=== PATIENT | female | born 1950 | race Caucasian/White ===

== ENCOUNTER → 2016-07-30 | Outpatient (CLI) | payer MEDICARE ==
[~2016-07-30] MED LIST: CHOL400C PO; CYCL10TA2 PO; LEVO112T4 PO; MULT-460 PO; NAPR220T70 PO; OMEG-128 PO; TRAM-29 PO; VITA1TAB19 PO; [UNRECOGNIZED DRUG - CODE] PO; [UNRECOGNIZED DRUG - OTHER] PO
[2016-07-30 09:45] LABS: FREE T4 1.34 ng/dL (0.76-1.46)
== END | disposition home or self-care (01) ==
LOC: LAB 08:52
PROVIDERS: ATTEND Orthopaedic Surgery
DX: E03.9 Hypothyroidism, unspecified (principal)
CPT/HCPCS: 36415; 84439; 84443

== ENCOUNTER → 2016-07-30 | Outpatient (CLI) | payer MEDICARE ==
[2016-07-30 09:09] LABS: BASO # 0.1 x10^3/uL (0.0-0.2); BASO % 1 % (0-3); EOS % 2 % (0-3); HEMATOCRIT 47.2 % (36.0-47.0); HEMOGLOBIN 15.9 g/dL (12.0-15.5); LYMPH # 3.3 x10^3/uL (1.0-4.8); LYMPH % 40 % (24-48); MEAN CORPUSCULAR HEMOGLOBIN 31 pg (25-35); MEAN CORPUSCULAR HGB CONC 34 g/dL (31-37); MEAN CORPUSCULAR VOLUME 92 fL (79-100); MONO % 8 % (0-9); NEUT % 49 % (31-73); PLATELET COUNT 395 x10^3/uL (140-400); RED BLOOD COUNT 5.13 x10^6/uL (3.50-5.40); RED CELL DISTRIBUTION WIDTH 13.7 % (11.5-14.5); WHITE BLOOD COUNT 8.3 x10^3/uL (4.0-11.0)
[2016-07-30 09:21] LABS: ALBUMIN 3.9 g/dL (3.4-5.0); CALCIUM 10.3 mg/dL (8.5-10.1); GFR 55.5; POTASSIUM 4.6 mmol/L (3.5-5.1)
[2016-07-30 09:29] LABS: INR 1.1 (0.8-1.1); PROTHROMBIN TIME PATIENT 13.3 SEC (11.7-14.0)
[2016-07-30 11:06] LABS: BILIRUBIN,URINE SMALL (NEG); GLUCOSE,URINE NEGATIVE (NEG); NITRITE,URINE NEGATIVE (NEG); PH,URINE 6.5; PROTEIN,URINE 100 mg/dL (NEG-TRACE)
[2016-07-30 11:31] LABS: BACTERIA,URINE 0 /HPF (0-FEW); SQUAMOUS EPITHELIAL CELL,UR OCC /LPF; WBC,URINE OCC /HPF (0-4)
--- NOTE | 2016-07-30 12:20 | EKG ---
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
--- NOTE | 2016-07-30 13:49 | RAD ---
Indication preop. Anticipated total hip replacement. PA and lateral views of the chest were obtained. No prior imaging of the chest is available. The heart and pulmonary vessels appear normal. The lungs are clear of acute infiltrates. There are several small nodules likely reflecting granulomas. There is a slightly larger nodule in the right lower lung field. Comparison with old films or follow-up is suggested to confirm stability. Right shoulder prosthesis is noted. Degenerative changes about the left shoulder are additionally noted. IMPRESSION: No acute finding apparent in the chest. Probable granulomas. See above discussion
== END | disposition home or self-care (01) ==
LOC: SURGPAT 12:54
PROVIDERS: ATTEND Orthopaedic Surgery
DX: Z01.818 Encounter for other preprocedural examination (principal)
CPT/HCPCS: 36415; 71020; 80048; 81001; 82040; 85027; 85610; 85651; 85730; 87641; 93005

== ENCOUNTER 2016-08-14 05:56 | Inpatient (IN) | payer MEDICARE ==
[2016-08-14] VITALS (8 sets, daily range): BP systolic 122–154; BP diastolic 70–97
[~2016-08-14] VITALS: Ht 177.8 cm; Wt 83.9 kg
[2016-08-14] MEDS ORDERED: MORPHINE SULFATE 5 MG, KETOROLAC TROMETHAMINE 30 MG, ROPIVacaine 0.5% PF 60 ML, EPINEPH... INT ART ONE ×10 (06:00)
[2016-08-14] MEDS ORDERED: TRANEXAMIC ACID 1,000 MG in IV NORMAL SALINE 50ML 50 ML INJ ONE ×2 (06:00→08:00)
[2016-08-14] MEDS ORDERED: ACETAMINOPHEN 500 MG TABLET PO ONE ×2 (06:42→07:00)
[2016-08-14] MEDS ORDERED: CELECOXIB 200 MG CAPSULE. ONE (06:42)
[2016-08-14] MEDS ORDERED: LIDOCAINE 1% 1 ML SYRINGE. ID PRN (07:00)
[2016-08-14] MEDS ORDERED: CELECOXIB 200 MG CAPSULE. PO ONE (07:00)
[2016-08-14] MEDS ORDERED: ONDANSETRON PF 4 MG/2 ML VIAL. IV PRN (07:00)
[2016-08-14] MEDS ORDERED: fentaNYL PF VIAL 100 MCG/2 ML VIAL IV PRN ×3 (07:00→08:00)
[2016-08-14] MEDS ORDERED: IV RINGERS,LACTATED 1000ML 1,000 ML IV SCH (07:00)
[2016-08-14] MEDS ORDERED: PROCHLORPERAZINE 10 MG/2 ML VIAL. IV PRN ×2 (07:00→08:00)
[2016-08-14 07:12] LABS: PROTHROMBIN TIME PATIENT 12.4 SEC (11.7-14.0)
[2016-08-14] MEDS ORDERED: PROPOFOL 20 ML IV ONE (07:21)
[2016-08-14] MEDS ORDERED: fentaNYL PF VIAL 100 MCG/2 ML VIAL ONE (07:21)
[2016-08-14] MEDS ORDERED: MIDAZOLAM HCL/PF 2 MG/2 ML VIAL. ONE (07:21)
[2016-08-14] MEDS ORDERED: LIDOCAINE 2% PF Vial for OR 5 ML VIAL. ONE (07:21)
[2016-08-14] MEDS ORDERED: OXYTOCIN 10 UNIT/ML VIAL. ONE (07:21)
[2016-08-14] MEDS ORDERED: ROCURONIUM 50 MG/5 ML VIAL. ONE ×2 (07:21→09:36)
[2016-08-14] MEDS ORDERED: DEXAMETHASONE SOD PHOS 20 MG/5 ML VIAL. ONE (07:21)
[2016-08-14] MEDS: IV DEXTROSE 5 %-0.45 % NACL 1,000 ML IV SCH ×2 (07:59→21:21)
[2016-08-14] MEDS ORDERED: 0.9 % SODIUM CHLORIDE 10 ML DISP.SYRIN. IV PRN (08:00)
[2016-08-14] MEDS ORDERED: oxyCODONE/APAP 5/325 1 TAB TABLET PO PRN (08:00)
[2016-08-14] MEDS ORDERED: ACETAMINOPHEN 325 MG TABLET. PO PRN (08:00)
[2016-08-14] MEDS ORDERED: CALCIUM CARBONATE 500 MG TAB.CHEW PO PRN (08:00)
[2016-08-14] MEDS ORDERED: ZOLPIDEM 5 MG TABLET. PO PRN (08:00)
[2016-08-14] MEDS ORDERED: DEXTROSE 50% 25 GM / 50ML DISP.SYRIN. IV PRN (08:00)
[2016-08-14] MEDS ORDERED: oxyCODONE/APAP 7.5/325 1 TAB TABLET PO PRN (08:00)
[2016-08-14] MEDS ORDERED: diphenhydrAMINE 50 MG/ML VIAL IV PRN (08:00)
[2016-08-14] MEDS ORDERED: MORPHINE SULFATE 10 MG/ML VIAL. IV PRN (08:00)
[2016-08-14] MEDS ORDERED: MORPHINE SULFATE 4 MG/ML DISP.SYRIN. IV PRN ×2 (08:00)
[2016-08-14] MEDS ORDERED: MORPHINE SULFATE 2 MG/ML DISP.SYRIN. IV PRN (08:00)
[2016-08-14] MEDS ORDERED: LABETALOL 20 MG/4 ML DISP.SYRIN. ONE (09:48)
[2016-08-14] MEDS ORDERED: HYDROmorphone 2 MG/ML VIAL ONE ×2 (10:13→11:50)
[2016-08-14] MEDS ORDERED: ONDANSETRON PF 4 MG/2 ML VIAL. ONE (10:36)
[2016-08-14] MEDS ORDERED: SEVOFLURANE > 120 MINUTES. IH ONE (10:36)
[2016-08-14] MEDS ORDERED: GLYCOPYRROLATE 1 MG/5 ML VIAL. ONE (10:57)
[2016-08-14] MEDS ORDERED: NEOSTIGMINE METHYLSULFATE 5 MG/5 ML SYRINGE. ONE (10:57)
[2016-08-14] MEDS: CYCLOBENZAPRINE 10 MG TABLET. PO SCH ×3 (11:00→21:20)
[2016-08-14] MEDS ORDERED: PHENYLEPHRINE in 0.9% NACL PF 1 MG/10 ML DISP.SYRIN. IV ONE (11:13)
[2016-08-14] MEDS: fentaNYL PF VIAL 100 MCG/2 ML VIAL IV PRN ×2 (11:40→11:55)
[2016-08-14] MEDS: HYDROmorphone 2 MG/ML VIAL IV PRN ×5 (11:55→13:37)
[2016-08-14] MEDS: SENNOSIDES/DOCUSATE 8.6/50MG TABLET. PO SCH (12:00)
[2016-08-14] MEDS: traMADol 50 MG TABLET PO SCH ×2 (12:00→17:50)
--- NOTE | 2016-08-14 12:15 | RAD ---
Examination: Frontal view of the pelvis History: History of postoperative comparison: 02/29/2016 Findings: A right total hip arthropathy changes in the abnormal alignment. A drain is identified in the right hip joint likely postoperative drain. Left femoral prosthesis is in place. Impression: Right total hip arthroplasty changes seen near normal alignment
--- NOTE | 2016-08-14 12:21 | PDOC ---
BRIEF OPERATIVE NOTE Date: August 14, 2016 Pre-Op Diagnosis djd right hip Post-Op Diagnosis same Procedure Performed right total hip arthroplasty Surgeon Valorie Kohler Anesthesia Type: General Blood Loss 400cc Specimens Obtained femoral head to pathology Findings above Complications none ROMÁN MACHADO MD August 14, 2016 12:21
[2016-08-14] MEDS ORDERED: traMADol 50 MG TABLET PO PRN ×2 (13:00→14:00)
--- NOTE | 2016-08-14 13:32 | OP ---
DATE OF SURGERY: 08/14/2016 PREOPERATIVE DIAGNOSIS: Degenerative joint disease of right hip. POSTOPERATIVE DIAGNOSIS: Degenerative joint disease of right hip. PROCEDURE: Right total hip arthroplasty. SURGEON: Cong Eugene M.D. ANESTHESIA: General. ESTIMATED BLOOD LOSS: 500 mL. HOTEL ASSOCIATE: First Tommy Junior. SPECIMENS: Femoral head to Pathology. COMPLICATIONS: None. OPERATIVE INDICATIONS: The patient is well known to me from a previous left total hip arthroplasty and right knee tibial plateau fracture and subsequent hardware removal that is now having severe right hip pain, and x-rays show severe degenerative changes. She has been through nonoperative treatment and activity modification in the past. She indicates that her other hip did very very well, and she is having significant pain and limitations to her daily activities as a result of the hip arthritis and wants to proceed with total hip arthroplasty. I had previously gone over with her additional nonoperative treatment options and the risks, benefits, postoperative course of total hip arthroplasty including possibility of leg length inequality, infection, nerve or blood vessel damage, and medical or other anesthetic complications among others. All of her questions were answered regarding the procedure, the differences from the planned anterior approach to the previous posterior approach that she had had, and she voiced understanding of the risks, benefits, and postoperative course and wants to proceed with operative evaluation and treatment. DESCRIPTION OF PROCEDURE: The patient was identified, procedure verified, patient placed in the supine position on the [place] fracture table, and after adequate amounts of general endotracheal anesthesia were administered, traction boots were placed, and the right hip was prepped and draped in standard sterile fashion. Fluoroscopic guidance was used to assess preoperative leg lengths and positioning. After timeout was performed, the patient, procedure identified and verified, an incision was made just lateral and distal to the anterior superior iliac spine along the course of the tensor fascia nadeen. Dissection was carried out down to the fascia of the tensor fascia nadeen. Tensor fascia nadeen was brought laterally. Rectus femoris was brought medially, and the interval was exploited using the Aquamantys device to coagulate the anterior circumflex vessels. Pericapsular fat was excised. Hip capsule was split in a T fashion. Femoral neck cut was made under fluoroscopic guidance, and a napkin ring of bone was removed. Femoral head was removed and sized. At approximately size 46 was noted to be severely degenerative as was the acetabulum. Acetabulum was exposed. Acetabular labrum was excised as was the contents of the fovea, all of which were bleeding points, cauterized with the Aquamantys device. Successive size reaming was carried out up to a size 50, and a size 52 Continuum cluster hole acetabular cup was then placed with excellent fixation and positioning related to the anatomic cup position. A single superior 50-mm screw obtained excellent bite for positioning of the acetabulum. A trial standard liner was then placed. Capsular release of the hip was carried out preserving the external rotators, and the leg was brought into an extended adducted position with externally rotated to deliver the proximal femur for work. The canal was located first with a box osteotome and rat tail rasp and successfully with broaches from the Avenir system up to a size 5 which gave excellent fit both by feel and radiographic feedback and matched the templating expected. Standard neck length and -3.5 slightly increased her leg length, had excellent stability, maintained the offset, and was tested in all extremes of motion. Trial components were removed. Thorough irrigation was carried out with normal saline solution. A vitamin E standard liner was impacted into place. A size 5 standard Avenir stem was impacted into place, and a -3.5, 36-mm ceramic head was impacted into place and reduced. The leg lengths were noted to be very close to equal offset, maintained excellent stability, again checked throughout her range of motion and verified radiographically. Thorough irrigation was carried out with normal saline solution. Hemovac drain and pain catheter were placed. Tissues were infused with the pain catheter mixture. Fascia was closed with #1 Vicryl suture in a running fashion, subcutaneous closure with buried #1 and 2-0 Vicryl, and subcuticular closure with 4-0 Monocryl. The patient was extubated and transferred to postoperative holding in stable condition having tolerated the procedure well. Please note that Debo Kohler, financial assistance specialist, was present for the prepping, draping, assisted in retraction as well as the subcuticular closure. CONG EUGENE MD DR: SPENCER/negra JOB#: [id number] / [id number]
[2016-08-14] MEDS ORDERED: WARFARIN 7.5 MG TABLET. PO ONE (16:00)
[2016-08-14] MEDS: FERROUS SULFATE 325 MG TABLET. PO SCH (17:50)
[2016-08-14] MEDS: CELECOXIB 200 MG CAPSULE. PO SCH (21:20)
[2016-08-15] MEDS: traMADol 50 MG TABLET PO SCH ×5 (00:24→23:10)
[2016-08-15 03:30] VITALS: BP 105/61
[2016-08-15] MEDS: IV DEXTROSE 5 %-0.45 % NACL 1,000 ML IV SCH ×2 (03:59→12:10)
[2016-08-15 04:33] LABS: HEMATOCRIT 30.2 % (36.0-47.0); HEMOGLOBIN 9.9 g/dL (12.0-15.5)
[2016-08-15 05:02] LABS: INR 1.1 (0.8-1.1); PROTHROMBIN TIME PATIENT 13.4 SEC (11.7-14.0)
[2016-08-15] MEDS ORDERED: MAGNESIUM HYDROXIDE 2,400 MG/30 ML ORAL.SUSP. PO PRN (06:00)
[2016-08-15 06:24] VITALS: BP 111/60
[2016-08-15] MEDS: LEVOTHYROXINE 112 MCG TABLET PO SCH (07:01)
[2016-08-15] MEDS: CHOLECALCIFEROL (VITAMIN D3) 1,000 UNIT TABLET PO SCH (07:50)
[2016-08-15] MEDS: CELECOXIB 200 MG CAPSULE. PO SCH ×2 (07:50→21:07)
[2016-08-15] MEDS: FERROUS SULFATE 325 MG TABLET. PO SCH ×2 (07:50→17:04)
[2016-08-15] MEDS: CYCLOBENZAPRINE 10 MG TABLET. PO SCH ×3 (07:51→21:07)
[2016-08-15] MEDS: SENNOSIDES/DOCUSATE 8.6/50MG TABLET. PO SCH ×2 (07:51→09:00)
[2016-08-15] MEDS: MULTIVITAMIN with MINERAL TABLET. PO SCH (07:51)
[2016-08-15] MEDS ORDERED: MULTIVITAMIN with MINERAL TABLET. PO SCH (09:00)
--- NOTE | 2016-08-15 14:09 | PDOC ---
PROGRESS NOTES Subjective Subjective Problems overnight: Overall doing well she says her back hurts a lot more than her hip, right leg feels little bit longer Objective Vital Signs Vital Signs Date Time Temp Pulse Resp B/P (MAP) Pulse Ox O2 Delivery O2 Flow Rate FiO2 08/15/16 08:00 Room Air 08/15/16 07:02 20 94 08/15/16 06:24 98.9 88 111/60 (77) 98.9 08/14/16 12:23 10 Physical Exam Incision is clean dry intact as is her drain and in catheter distal neurovascular status intact leg lengths equal Labs Laboratory Tests Test 08/14/16 06:46 08/15/16 03:45 Prothrombin Time 12.4 SEC (11.7-14.0) 13.4 SEC (11.7-14.0) Prothromb Time International Ratio 1.0 (0.8-1.1) 1.1 (0.8-1.1) Activated Partial Thromboplast Time 29 SEC (24-38) Hemoglobin 9.9 g/dL (12.0-15.5) Hematocrit 30.2 % (36.0-47.0) Mean Corpuscular Hemoglobin Concent 33 g/dL (31-37) Laboratory Tests Test 08/15/16 03:45 Hemoglobin 9.9 g/dL (12.0-15.5) Hematocrit 30.2 % (36.0-47.0) Mean Corpuscular Hemoglobin Concent 33 g/dL (31-37) Prothrombin Time 13.4 SEC (11.7-14.0) Prothromb Time International Ratio 1.1 (0.8-1.1) Imaging Postoperative x-rays show excellent positioning of components she appears to have increased leg length of approximately 4 mm compared to the contralateral left side although legs are in slightly windswept position increasing that measurement somewhat Assessment Assessment POD# [1], S/P [right total hip arthroplasty] Problems: Plan Plan of Care Mobilize with physical therapy weightbearing as tolerated no hip precautions ( anterior approach) Coumadin anticoagulation. I asked case management to work with the patient to develop a convenient plan for lab follow-up as she is from [facility] and travels weekly to the [facility] for her work Probably will need minimal outpatient physical therapy given her past recovery and we will emphasize a comprehensive home exercise program in physical therapy ROMÁN MACHADO MD August 15, 2016 14:09
[2016-08-15 15:00] VITALS: BP 133/73
[2016-08-15] MEDS ORDERED: WARFARIN 5 MG TABLET. PO ONE (16:00)
[2016-08-15] MEDS ORDERED: BISACODYL 10 MG SUPP.RECT. PR PRN (16:00)
[2016-08-15 19:15] VITALS: BP 131/80
[2016-08-16] MEDS: LEVOTHYROXINE 112 MCG TABLET PO SCH (06:14)
[2016-08-16] MEDS: traMADol 50 MG TABLET PO SCH ×3 (06:14→17:49)
[2016-08-16 06:16] VITALS: BP 140/99
[2016-08-16 08:02] LABS: HEMATOCRIT 32.9 % (36.0-47.0); HEMOGLOBIN 10.7 g/dL (12.0-15.5)
[2016-08-16 08:14] LABS: INR 1.2 (0.8-1.1); PROTHROMBIN TIME PATIENT 14.3 SEC (11.7-14.0)
[2016-08-16] MEDS: FERROUS SULFATE 325 MG TABLET. PO SCH ×2 (08:30→17:49)
[2016-08-16] MEDS: MULTIVITAMIN with MINERAL TABLET. PO SCH (08:30)
[2016-08-16] MEDS: CELECOXIB 200 MG CAPSULE. PO SCH ×2 (08:30→21:53)
[2016-08-16] MEDS: CYCLOBENZAPRINE 10 MG TABLET. PO SCH ×3 (08:30→21:53)
[2016-08-16] MEDS: SENNOSIDES/DOCUSATE 8.6/50MG TABLET. PO SCH (08:30)
[2016-08-16] MEDS: CHOLECALCIFEROL (VITAMIN D3) 1,000 UNIT TABLET PO SCH (08:30)
--- NOTE | 2016-08-16 10:07 | PDOC ---
ORTHO PROGRESS NOTES Subjective Shakila states that she is doing well. Pain is minimal. No CP/SOB. some numbness around the incision but none distally. Anticipates DC tomorrow Post-op Day: 2 (Right KYM) Vitals Vital Signs Date Time Temp Pulse Resp B/P (MAP) Pulse Ox O2 Delivery O2 Flow Rate FiO2 08/16/16 07:45 Room Air 08/16/16 07:15 16 08/16/16 06:16 98.3 92 140/99 (113) 99 98.3 Labs Laboratory Tests Test 08/15/16 03:45 08/16/16 07:30 Hemoglobin 9.9 g/dL (12.0-15.5) 10.7 g/dL (12.0-15.5) Hematocrit 30.2 % (36.0-47.0) 32.9 % (36.0-47.0) Mean Corpuscular Hemoglobin Concent 33 g/dL (31-37) 33 g/dL (31-37) Prothrombin Time 13.4 SEC (11.7-14.0) 14.3 SEC (11.7-14.0) Prothromb Time International Ratio 1.1 (0.8-1.1) 1.2 (0.8-1.1) Laboratory Tests Test 08/16/16 07:30 Hemoglobin 10.7 g/dL (12.0-15.5) Hematocrit 32.9 % (36.0-47.0) Mean Corpuscular Hemoglobin Concent 33 g/dL (31-37) Prothrombin Time 14.3 SEC (11.7-14.0) Prothromb Time International Ratio 1.2 (0.8-1.1) Notes Patient is awake and alert. Breathing unlabored, no acute distress. Incision covered with dressing, intact. No signs or symptoms of infection. Mild edema. Neurovascular intact right lower extremity Problems: (1) Degenerative joint disease of right hip Assessment and Plan Continue PT OT, weightbearing as tolerated Anticoagulation per pharmacy Pain controlled Anticipate discharge tomorrow Problem Qualifiers (1) Degenerative joint disease of right hip: Osteoarthritis type: primary Qualified Codes: M16.11 - Unilateral primary osteoarthritis, right hip RAJWINDER CASTRO APRN August 16, 2016 10:07
[2016-08-16] MEDS ORDERED: WARFARIN 5 MG TABLET. PO ONE (16:00)
--- NOTE | 2016-08-16 16:19 | PATHOLOGY ---
PATHOLOGY REPORT * * * * * * * * FINAL DIAGNOSIS: Femoral head, right total hip arthroplasty: - Advanced degenerative arthritis. (JPM:csd; d/t: 08/16/2016) REPORT ELECTRONICALLY SIGNED BY: Nathan Garcia M.D. DATE/TIME: 08/16/2016 16:18 * * * * * * * * GROSS PATHOLOGY: Received in formalin labeled "Binta Sanchez, right hip tissue," is a femoral head measuring 5.8 x 5.4 x 3.9 cm in greatest dimensions. The articular surface is pink-sparks and smooth to white sparks and granular, displaying focally distinct eburnation. Sectioning reveals a light sparks and slightly softened marrow space. The specimen is submitted representatively in cassette A1, following light decalcification. (KAH; 08/15/2016) INITIAL CPT CODE(S): A; 51044, 10103 Professional services [place] [facility] [place] [address] Technical services performed by [facility] at [address] [place] [address], [facility] [address], [place] [address]. SPECIMEN(S) RECEIVED: A.Right hip tissue CLINICAL HISTORY: Osteoarthritis PATIENT: BINTA SANCHEZ /AGE: 7 1950 (Age: 65) PATIENT #: [id number] ALT CASE #: SPECIMEN COLLECTION DATE: 08/14/2016 SPECIMEN RECEIVED DATE: 08/14/2016 [facility] - [address] [place] [address] - PHONE: [phone] * * * END OF REPORT * * *
[2016-08-16 18:23] VITALS: BP 136/73
[2016-08-17] MEDS: traMADol 50 MG TABLET PO SCH ×3 (00:15→12:43)
[2016-08-17 05:24] LABS: HEMATOCRIT 32.7 % (36.0-47.0); HEMOGLOBIN 11.1 g/dL (12.0-15.5)
[2016-08-17 05:26] LABS: INR 1.3 (0.8-1.1); PROTHROMBIN TIME PATIENT 15.3 SEC (11.7-14.0)
[2016-08-17] MEDS: LEVOTHYROXINE 112 MCG TABLET PO SCH (06:16)
[2016-08-17 06:18] VITALS: BP 121/70
[2016-08-17] MEDS: CELECOXIB 200 MG CAPSULE. PO SCH (08:13)
[2016-08-17] MEDS: FERROUS SULFATE 325 MG TABLET. PO SCH (08:13)
[2016-08-17] MEDS: MULTIVITAMIN with MINERAL TABLET. PO SCH (08:13)
[2016-08-17] MEDS: CHOLECALCIFEROL (VITAMIN D3) 1,000 UNIT TABLET PO SCH (08:14)
[2016-08-17] MEDS: SENNOSIDES/DOCUSATE 8.6/50MG TABLET. PO SCH (08:14)
[2016-08-17] MEDS: CYCLOBENZAPRINE 10 MG TABLET. PO SCH ×2 (08:14→14:32)
[2016-08-17] MEDS ORDERED: WARF6TAB49 PO (11:58)
[2016-08-17] MEDS ORDERED: WARFARIN 6 MG TABLET. PO ONE (14:00)
[2016-08-17 14:32] VITALS: BP 133/86
== END 2016-08-17 15:35 | disposition home or self-care (01) | DRG 470 ==
LOC: OPSVCIP 05:56 → 4 SOUTHEST 12:53
PROVIDERS: ADMIT Orthopaedic Surgery; ATTEND Orthopaedic Surgery
PROC: 0SR903Z Replacement of Right Hip Joint with Ceramic Synthetic Substitute, Open Approach (ICD-10-PCS; principal; 2016-08-14 07:30)
DX: M16.11 Unilateral primary osteoarthritis, right hip (principal); Z88.8 Allergy status to other drugs, medicaments and biological substances
CPT/HCPCS: 36415; 72170; 76000; 85014; 85018; 85610; 85730; 86850; 86900; 86901; 88304; 88311; J0171; J0690; J1100; J1170; J1885; J2250; J2270; J2370; J2405; J2590; J2704; J2710; J2795; J3010; J3490; J7030; J7120; 97116; 97150; 97530; 97535

== ENCOUNTER → 2018-01-03 | Outpatient (CLI) | payer MEDICARE ==
[~2018-01-03] MED LIST changes: -TRAM-29 PO; +TRAM-48 PO; +WARF6TAB49 PO
--- NOTE | 2018-01-03 15:49 | KCIC ---
MRI Lumbar Spine without contrast History: Low back pain for many years Technique: Multiplanar, multi sequential noncontrast MR imaging was performed of the lumbar spine. Contrast: None Comparison: None Findings: There is some motion degradation. Lumbar vertebral body stature is overall maintained. There is very minimal posterior subluxation L5 relative S1 and also minimal grade 1 anterior spondylolisthesis L4-5. Conus terminates at L1. There is nonspecific mild heterogeneity of marrow signal. There is prominent T12-L1 endplate edema, no fluid in the intervertebral disc space. There is also mild amorphous endplate edema L3-4 and L5-S1. There is more advanced degenerative disc disease T12-L1, L2-3, L3-4, L5-S1 and to a somewhat lesser degree at L1-L2 and L4-5. There is minimal dextroscoliosis centered about L1. L1-L2: This level was not included on the axial images. There is minimal disc osteophyte complex. Spinal canal and neural foramina are adequate. L2-L3: There is negligible disc osteophyte complex. Spinal canal and neural foramina are adequate. There is mild facet degenerative change. L3-L4: There is minimal disc osteophyte complex and bulge. Spinal canal and left neural foramen are adequate, mild narrowing of the right neural foramen. There is minimal right facet degenerative change. L4-L5: There is mild bilateral facet hypertrophic change. There is mild prominence of posterior epidural fat. Spinal canal is overall adequate. There is negligible bulge. Neural foramina are adequate. L5-S1: There is mild to moderate facet degenerative change. Spinal canal is adequate. There is negligible disc osteophyte complex. There is mild narrowing of the left neural foramen, right neural foramen adequate. Impression: 1. There is minimal grade 1 anterior spondylolisthesis at L4-5 and minimal posterior subluxation L5 relative to S1. There is no significant lumbar spinal stenosis. There is mild narrowing of the left L5-S1 neural foramen. There is multilevel fairly advanced degenerative disc disease, L1-L2 and L4-5 least affected. There is prominent T12-L1 endplate edema and to lesser degree at L2-3-4 and L5-S1, likely reactive/degenerative in etiology. Electronically signed by: Faisal Harrison MD (01/03/2018 3:45 PM) [facility]-[id number]
== END | disposition home or self-care (01) ==
LOC: KCIC MRI 14:24
PROVIDERS: ATTEND Orthopaedic Surgery
DX: M51.35 Other intervertebral disc degeneration, thoracolumbar region (principal); M43.17 Spondylolisthesis, lumbosacral region; M48.07 Spinal stenosis, lumbosacral region; R60.0 Localized edema
CPT/HCPCS: 72148

== ENCOUNTER → 2018-06-20 | Outpatient (CLI) | payer MEDICARE, OTHER ==
--- NOTE | 2018-06-20 15:54 | KCIC ---
EXAM: MRI left shoulder DATE: 06/20/2018 2:45 PM COMPARISON: None INDICATION: Left shoulder pain with limited range of motion. Progressing over the last 3 months TECHNIQUE: Multiplanar, multisequence MRI of the left shoulder was performed without contrast. FINDINGS: Mild AC joint degenerative changes are seen with AC joint edema and capsular hypertrophy. Moderate subacromial-subdeltoid bursal edema likely bursitis. Small to moderate left glenohumeral joint effusion. There is a focal full-thickness tear of the midposterior fibers of the supraspinatus tendon measures approximately 5 mm in transverse dimension. This is in a background of moderate supraspinatus and infraspinatus increased signal consistent with moderate tendinosis. There is also mild tendinosis of the subscapularis tendon. Normal rotator cuff muscle signal and bulk without fatty atrophy. The extra-articular long head biceps tendon is normal in signal and morphology. The intra-articular long head biceps tendon is mildly increased in signal, tendinosis. Advanced left glenohumeral joint osteoarthritis with chondral effacement and subchondral cystic change within the glenoid. The largest subchondral cyst within the glenoid measures approximately 1.2 cm inferiorly. Diffuse labral degeneration/maceration. No evidence for fracture or osteonecrosis. IMPRESSION: 1. Advanced left glenohumeral joint osteoarthritis with chondral effacement, glenohumeral proliferative changes, subchondral cystic change and labral degeneration. 2. Focal full-thickness tear of the supraspinatus tendon measures roughly 5 mm in transverse dimension. 3. Background of moderate supraspinatus and infraspinatus tendinosis and mild subscapularis tendinosis. Electronically signed by: Pato Gordillo MD (06/20/2018 3:51 PM) [email or web address]
== END | disposition home or self-care (01) ==
LOC: KCIC MRI 14:03
PROVIDERS: ATTEND Orthopaedic Surgery
DX: M75.102 Unspecified rotator cuff tear or rupture of left shoulder, not specified as traumatic (principal); M19.012 Primary osteoarthritis, left shoulder; M75.82 Other shoulder lesions, left shoulder
CPT/HCPCS: 73221

== ENCOUNTER → 2020-05-04 | Outpatient (CLI) | payer BC ==
[2020-02-16 14:42] VITALS: BP 134/80
[~2020-05-04] MED LIST changes: +APIX2.5T PO; +FERR-36 PO; -LEVO112T4 PO; +LEVO112T49 PO; +[UNRECOGNIZED DRUG - OTHER]; +[UNRECOGNIZED DRUG - OTHER]; +[UNRECOGNIZED DRUG - OTHER] PO; +mega red PO
[2020-05-04 14:56] LABS: BASO # 0.1 x10^3/uL (0.0-0.2); BASO % 1 % (0-3); EOS # 0.2 x10^3/uL (0.0-0.7); EOS % 3 % (0-3); HEMATOCRIT 43.1 % (36.0-47.0); HEMOGLOBIN 14.2 g/dL (12.0-15.5); LYMPH # 2.8 x10^3/uL (1.0-4.8); LYMPH % 41 % (24-48); MEAN CORPUSCULAR HEMOGLOBIN 29 pg (25-35); MEAN CORPUSCULAR HGB CONC 33 g/dL (31-37); MEAN CORPUSCULAR VOLUME 89 fL (79-100); MONO # 0.5 x10^3/uL (0.0-1.1); MONO % 7 % (0-9); NEUT # 3.3 x10^3/uL (1.8-7.7); NEUT % 47 % (31-73); PLATELET COUNT 422 x10^3/uL (140-400); RED BLOOD COUNT 4.82 x10^6/uL (3.50-5.40); RED CELL DISTRIBUTION WIDTH 15.7 % (11.5-14.5)
[2020-05-04 15:03] LABS: ALBUMIN 3.8 g/dL (3.4-5.0); CALCIUM 9.6 mg/dL (8.5-10.1); CREATININE 0.9 mg/dL (0.6-1.0); GFR 61.9; POTASSIUM 3.8 mmol/L (3.5-5.1)
--- NOTE | 2020-05-04 15:04 | NUR ---
Dr. Maravilla spoke with patient about her concerns with post op "fogginess" lasting for days.
[2020-05-04 15:11] LABS: PROTHROMBIN TIME PATIENT 12.2 SEC (11.7-14.0)
[2020-05-05 00:08] LABS: HEMOGLOBIN A1C 5.4 % (4.8-5.6)
== END ==
LOC: SURGPAT 13:34
PROVIDERS: ATTEND Orthopaedic Surgery
DX: Z01.812 Encounter for preprocedural laboratory examination (principal); M17.11 Unilateral primary osteoarthritis, right knee; Z20.822 Contact with and (suspected) exposure to COVID-19
CPT/HCPCS: 36415; 80048; 82040; 82306; 83036; 85025; 85610; 85730; 86140; 87641; U0003

== ENCOUNTER → 2020-06-03 | Outpatient (CLI) | payer BC ==
[2020-02-16 14:42] VITALS: BP 134/80
[~2020-06-03] MED LIST changes: +OXYC5CAP PO
== END ==
LOC: LAB 15:19
PROVIDERS: ATTEND Orthopaedic Surgery
DX: Z01.812 Encounter for preprocedural laboratory examination (principal); M17.11 Unilateral primary osteoarthritis, right knee; Z20.822 Contact with and (suspected) exposure to COVID-19
CPT/HCPCS: 87641; U0003

== ENCOUNTER 2020-06-07 06:08 | Observation (INO) | payer BC ==
[2020-06-07] VITALS (7 sets, daily range): BP systolic 111–157; BP diastolic 59–89
[~2020-06-07] VITALS: Ht 177.8 cm; Wt 79.8 kg
[~2020-06-07 06:08] MED LIST changes: +ACETAMINOPHEN 500 MG TABLET PO PRN; +GABAPENTIN 300 MG CAPSULE. PO PRN; +IV RINGERS,LACTATED 1000ML 1,000 ML IV SCH; +MELOXICAM 7.5 MG TABLET PO PRN; +MORPHINE SULFATE 5 MG, KETOROLAC 30MG VIAL 30 MG, ROPIVacaine 0.5% PF 60 ML, EPINEPHrin... INT ART ONE; -OXYC5CAP PO; +PROCHLORPERAZINE 10 MG/2 ML VIAL. IVP PRN; +TRANEXAMIC ACID 1,000 MG in IV NS 50ML -- 1ST BAG INJ ONE; +ceFAZolin SODIUM IV Push 1 GM VIAL. IVP PRN; +fentaNYL PF VIAL 100 MCG/2 ML VIAL IVP PRN
[2020-06-07] MEDS ORDERED: PROPOFOL 10 MG/ML (20ML) VIAL. IV ONE (06:51)
[2020-06-07] MEDS ORDERED: LIDOCAINE 1% PF 5 ML VIAL. ONE (06:51)
[2020-06-07] MEDS ORDERED: ONDANSETRON PF 4 MG/2 ML VIAL. ONE (06:51)
[2020-06-07] MEDS ORDERED: fentaNYL PF VIAL 100 MCG/2 ML VIAL ONE ×2 (06:51→08:48)
[2020-06-07] MEDS ORDERED: DEXAMETHASONE SOD PHOS 4 MG/ML VIAL ONE (06:51)
[2020-06-07] MEDS ORDERED: fentaNYL PF VIAL 250 MCG/5 ML VIAL ONE (06:52)
[2020-06-07] MEDS ORDERED: VANCOMYCIN 1 GM VIAL. ONE ×2 (07:02→07:23)
[2020-06-07] MEDS ORDERED: TRANEXAMIC ACID in NS IVPB 50 ML ONE (07:02)
[2020-06-07 07:07] LABS: PROTHROMBIN TIME PATIENT 12.4 SEC (11.7-14.0)
[2020-06-07] MEDS ORDERED: BUPIVACAINE MPF 0.5% 30 ML VIAL. ONE (07:43)
[2020-06-07] MEDS ORDERED: methylPREDNISolone ACETATE 80 MG/ML VIAL. ONE (07:43)
[2020-06-07] MEDS ORDERED: TRANEXAMIC ACID 1,000 MG in IV NS 50ML -- 2ND BAG INJ ONE (08:00)
[2020-06-07] MEDS ORDERED: PROCHLORPERAZINE 5 MG TABLET. PO PRN (08:00)
[2020-06-07] MEDS ORDERED: CALCIUM CARBONATE 500 MG TAB.CHEW PO PRN (08:00)
[2020-06-07] MEDS ORDERED: 0.9 % SODIUM CHLORIDE 10 ML DISP.SYRIN. IV PRN (08:00)
[2020-06-07] MEDS ORDERED: ZOLPIDEM 5 MG TABLET. PO PRN (08:00)
[2020-06-07] MEDS ORDERED: MORPHINE SULFATE 2 MG/ML VIAL. IVP PRN ×2 (08:00→10:15)
[2020-06-07] MEDS ORDERED: diphenhydrAMINE 50 MG/ML VIAL IVP PRN (08:00)
[2020-06-07] MEDS ORDERED: DEXTROSE 50% 25 GM / 50ML DISP.SYRIN. IV PRN (08:00)
[2020-06-07] MEDS ORDERED: fentaNYL PF VIAL 100 MCG/2 ML VIAL IVP PRN ×3 (08:00→10:15)
--- NOTE | 2020-06-07 08:25 | HP ---
ADMIT DATE: 06/07/2020 CHIEF COMPLAINT: Right knee pain. HISTORY OF PRESENT ILLNESS: The patient has had bilateral knee pain, right was actually worse than left, and she unfortunately had a tibial plateau fracture that was treated successfully with left total knee arthroplasty which she is very pleased with. The right knee unfortunately had hurt the most to begin with of the two and continues to give her a lot of problems, especially with the increased activity that the left is tolerating at this point. She is also complaining of some left shoulder pain and concerned on how that might affect her rehabilitation. She notes an ingrown toenail issue with the right foot that has since resolved, but caused a delay in a previously scheduled right total knee arthroplasty. PAST MEDICAL HISTORY: Significant for hypothyroidism. PAST SURGICAL HISTORY: Left total knee arthroplasty for tibial plateau fracture, right shoulder repair, bilateral hip replacements, hysterectomy. FAMILY HISTORY: Denies any significant family history. SOCIAL HISTORY: Denies smoking or drug use. Social alcohol use occasionally. MEDICATIONS: List is reviewed. ALLERGIES: SHE LISTS AN ALLERGY TO HYDROCODONE. REVIEW OF SYSTEMS: Denies any fever, chills. Recent wounds, the most recent was the resolved ingrown toenail on the right great toe, resolved some time ago and she denies any chest pain, shortness of breath, focal weakness, numbness, tingling or other constitutional symptoms. PHYSICAL EXAMINATION: VITAL SIGNS: Per admission sheet. Blood pressure 175/103, pulse 96, respirations 20, ____ saturation on room air, temperature 97.0 as I had omitted those previously. HEENT: Atraumatic, normocephalic. HEART: Regular rate and rhythm. LUNGS: Clear to auscultation bilaterally. ABDOMEN: Benign. EXTREMITIES: Examination of the right knee reveals some slight varus, significant crepitus, joint line tenderness, no gross ligamentous instability, well-healed incisions over both hips from previous total hip arthroplasties. Leg lengths are equal, were then just a few millimeters, normal alignment, stability, bilateral hips and ankles with intact motor function, distal pulses, sensation, reflexes, skin in both lower extremities throughout and well-healed midline incision. Excellent stability from a left total knee arthroplasty. DIAGNOSTIC IMAGING: X-rays show tricompartmental degenerative changes and a bit of joint subluxation on the right knee. IMPRESSION: 1. History of bilateral total hip arthroplasty. 2. History of left knee arthroplasty for fracture and degenerative joint disease of the right knee. TREATMENT PLAN: We had previously covered risks, benefits, postoperative course of the procedure of total knee arthroplasty including the possibility of infection, nerve or blood vessel damage, instability, premature wear or loosening, medical or other anesthetic complications among others. All her questions were answered. She wishes to proceed with surgical evaluation and treatment, which will include [facility] observation to follow up. ROMÁN MACHADO MD DR: SPENCER/negra JOB#: [id number] / [id number]
[2020-06-07] MEDS ORDERED: HYDROmorphone 2 MG/ML VIAL ONE ×2 (08:53→10:05)
[2020-06-07] MEDS ORDERED: MORPHINE SULFATE 2 MG/ML VIAL. ONE (09:45)
--- NOTE | 2020-06-07 10:07 | RAD ---
2 views the right knee compared to the radiographs dated January 242019 for postop. FINDINGS: There are new postsurgical changes of a total knee arthroplasty, with no periprosthetic brian encies identified. There is air throughout soft tissues as expected. No unexpected radiopaque foreign bodies. IMPRESSION: 1. Postop changes of total knee arthroplasty. Electronically signed by: Jay Rivera MD (06/07/2020 10:04 AM) [id number]
[2020-06-07] MEDS: HYDROmorphone 2 MG/ML VIAL IV PRN ×4 (10:12→10:39)
[2020-06-07] MEDS: IV NORMAL SALINE 1000ML BAG 1,000 ML IV SCH (10:14)
[2020-06-07] MEDS ORDERED: ONDANSETRON PF 4 MG/2 ML VIAL. IVP PRN (10:15)
[2020-06-07] MEDS: ONDANSETRON ODT 4 MG TAB.RAPDIS. PO SCH ×2 (11:11→16:43)
[2020-06-07] MEDS: ONDANSETRON PF 4 MG/2 ML VIAL. IVP SCH ×2 (11:11→16:43)
--- NOTE | 2020-06-07 11:55 | NUR ---
Patient arrived to the floor on the hospital bed around 1045 from PACU. Pain medication recently given in PACU. She states her pain is at a five on admission and she feels "foggy" but not nauseas so she refused nausea meds. Friend Natalya at bedside. Patient states she is a daily drinker, typically wine or whiskey, but does not feel she will crave it at the hospital and does not want us to monitor her for withdrawal because it is just a social thing per the patient. She refused doing the IS on admission. Patient requesting to use crutches instead of a walker because she states "a walker doesn't work for her and her needs". Crutches at bedside and PT is aware. IV infusing properly in right wrist. COLT covered with geeta wrap on RLE and is working properly. NO hemovac or IAC present. Will continue to monitor.
[2020-06-07] MEDS: KETOROLAC 30MG VIAL 30 MG, BUPIVACAINE MPF 0.25% 20 ML, EPINEPHrine 0.5 MG in TOTAL VOL... INT ART SCH (14:40)
[2020-06-07] MEDS: FERROUS SULFATE 325 MG TABLET. PO SCH (15:43)
[2020-06-07] MEDS ORDERED: WARFARIN 7.5 MG TABLET. PO ONE (16:00)
--- NOTE | 2020-06-07 19:03 | PDOC4 ---
Operative Note Operative Note Date of surgery: 06/07/2020 Preoperative diagnosis: Degenerative joint disease right knee Postoperative diagnosis: Same Operative procedure: Right total knee arthroplasty Surgeon: Valorie Hse Specialist: Neo miller Anesthesia: General Estimated blood loss: 25 cc Complications: None Drains: None Specimens: Articular surfaces to pathology Operative indications: Please see my previous clinic notes for detailed operative indications and note that patient has undergone previous open reduction fixation of a tibial plateau fracture on the right and subsequent hardware removal with ongoing right knee pain and also a previous left total knee arthroplasty and is increasingly symptomatic for degenerative change of the right knee and has severe pain affecting her activities of daily living. We had discussed total knee arthroplasty the possibility of infection instability premature wear or loosening nerve or blood vessel damage medical or other anesthetic complications among others. All her questions were answered she agrees to proceed with surgical evaluation and treatment. Operative text: Patient was identified procedure verified patient placed in the supine position on the operating table. After adequate amounts of general anesthesia were administered the right lower extremity was prepped and draped in standard sterile fashion with a thigh tourniquet. After timeout was performed patient procedure identified and verified the right lower extremity was exsanguinated by Esmarch bandage tourniquet inflated to 300 mmHg a midline incision was made with a mid vastus extending to a medial parapatellar approach, patella was everted fat pad was excised distal femur was drilled and distal femoral guide set for a standard distal cut of 5 degrees. External tibial cutting jig was aligned to the second toe and tibial cut was made just distal to severe medial wear and extension gap showed good alignment. Distal femoral guide was chosen for posterior referencing due to the lack of significant deformity. Based on measurements a size 6 distal femoral cutting block was placed in the appropriate rotation and AP and chamfer cuts were then made. Flexion extension gaps were balanced with a moderate medial release, a size F tibial component was placed drilled and broached and trial fitting carried out with a size 14 medial congruent tibial insert. Excellent stability range of motion and ligament balance was obtained. I removed patellar osteophytes but elected not to resurface due to satisfactory condition of the patella. Femoral lug holes were drilled trial components were removed bleeding points controlled by electrocautery after thorough irrigation with normal saline solution and the following Steve persona components were cemented with polymethylmethacrylate cement: A right size F persona natural tibia component, a size 6 cruciate retaining standard right femoral component and a vitamin E medial congruent 14 mm height polyethylene articular surface locked in place. Thorough irrigation carried out normal saline solution excess cement was removed irrigation carried out with dilute Betadine followed by another liter of normal saline solution with pulse lavage. Intra-articular catheter mixture was injected throughout the joint capsule particular attention to around the periosteal surfaces 1 g vancomycin was placed in the joint and the retinacular closure accomplished with #1 PDS strata fix suture in a running fashion subcutaneous closure with buried 2-0 Vicryl suture subcuticular 3-0 strata fix Monocryl, and a keith dressing was placed. Patient was returned to recovery room in stable condition having tolerated the procedure well toes were noted to be warm pink following deflation of the tourniquet after total tourniquet time of about 1 hour. Neo newman assist was present for the procedure and assisted in the patient posi tioning prepping draping retraction closure and dressings ROMÁN MACHADO MD Jun 07, 2020 19:03
[2020-06-07] MEDS: oxyCODONE IR 5 MG TABLET PO PRN (19:28)
[2020-06-07] MEDS: CYCLOBENZAPRINE 10 MG TABLET. PO PRN (20:44)
[2020-06-08] MEDS: LEVOTHYROXINE 112 MCG TABLET PO SCH ×2 (01:44→07:00)
--- NOTE | 2020-06-08 01:45 | NUR ---
Synthroid given po per request.
--- NOTE | 2020-06-08 04:08 | NUR ---
Patient became verbally aggressive and agitated when the airfield engineer officer turned the room lights on.
[2020-06-08] MEDS: traMADol 50 MG TABLET PO SCH ×2 (06:00→12:00)
[2020-06-08] MEDS: ONDANSETRON PF 4 MG/2 ML VIAL. IVP SCH ×2 (06:00)
[2020-06-08] MEDS ORDERED: GABAPENTIN 100 MG CAPSULE. PO SCH (06:00)
[2020-06-08] MEDS: KETOROLAC 30MG VIAL 30 MG, BUPIVACAINE MPF 0.25% 20 ML, EPINEPHrine 0.5 MG in TOTAL VOL... INT ART SCH (06:00)
[2020-06-08] MEDS: ONDANSETRON ODT 4 MG TAB.RAPDIS. PO SCH ×2 (06:00)
[2020-06-08] MEDS ORDERED: MAGNESIUM HYDROXIDE 2,400 MG/30 ML ORAL.SUSP. PO PRN (06:00)
[2020-06-08 06:06] VITALS: BP 129/67
[2020-06-08 07:48] LABS: PROTHROMBIN TIME PATIENT 15.3 SEC (11.7-14.0)
[2020-06-08] MEDS: IV NORMAL SALINE 1000ML BAG 1,000 ML IV SCH (08:00)
[2020-06-08] MEDS: ACETAMINOPHEN 500 MG TABLET PO SCH ×2 (08:25→16:37)
[2020-06-08] MEDS: FERROUS SULFATE 325 MG TABLET. PO SCH ×2 (08:25→17:00)
[2020-06-08] MEDS: CYCLOBENZAPRINE 10 MG TABLET. PO PRN ×2 (08:26→16:36)
[2020-06-08] MEDS: oxyCODONE IR 5 MG TABLET PO PRN ×3 (08:27→17:13)
[2020-06-08] MEDS ORDERED: VITAMIN B COMPLEX TABLET. PO SCH (09:00)
[2020-06-08] MEDS ORDERED: MELOXICAM 7.5 MG TABLET PO SCH (09:00)
[2020-06-08] MEDS ORDERED: CHOLECALCIFEROL (VITAMIN D3) 1,000 UNIT TABLET PO SCH (09:00)
[2020-06-08] MEDS ORDERED: FERROUS SULFATE 325 MG TABLET. PO SCH (09:00)
[2020-06-08] MEDS ORDERED: SENNOSIDES/DOCUSATE 8.6/50MG TABLET. PO SCH (09:00)
[2020-06-08] MEDS ORDERED: OMEGA-3 FATTY ACIDS/FISH OIL 1,000 MG CAPSULE. PO SCH (09:00)
[2020-06-08] MEDS ORDERED: MULTIVITAMIN with MINERAL TABLET. PO SCH ×2 (09:00)
--- NOTE | 2020-06-08 09:28 | NUR ---
Pharmacy Warfarin Dosing Note S:Pharmacy consulted to assist with anticoagulation therapy started with target INR: 1.6 - 2.5 O:BINTA SANCHEZ is a 69 year old F with TKA LABS: Last INR: 1 Last HGB: Last HCT: Last PLT: Last dose of given on at Previous Regimen: Vitamin K given: Drug Interaction Changes: Ongoing Drug Interactions: A:INR of 1 is below desired range. Target range for this patient is: 1.6 - 2.5 P: Warfarin dose: 7.5 mg Today at 1600 [facility] Therapy: Next INR due IN AM Pharmacy anticoagulation service will continue to follow. YO MENDOZA RPH, 06/08/20 0928
[2020-06-08 11:35] LABS: HEMATOCRIT 35.6 % (36.0-47.0); HEMOGLOBIN 11.4 g/dL (12.0-15.5)
[2020-06-08] MEDS ORDERED: ONDANSETRON ODT 4 MG TAB.RAPDIS. PO PRN (12:00)
[2020-06-08] MEDS ORDERED: ONDANSETRON PF 4 MG/2 ML VIAL. IVP PRN (12:00)
[2020-06-08 13:24] VITALS: BP 132/71
[2020-06-08] MEDS ORDERED: WARFARIN 4 MG TABLET. PO ONE (14:00)
[2020-06-08] MEDS ORDERED: OXYC5CAP PO (14:10)
[2020-06-08] MEDS ORDERED: APIX2.5T PO (14:10)
--- NOTE | 2020-06-08 14:11 | DISCH ---
DISCHARGE INSTRUCTIONS Condition on Discharge Condition on Discharge: Stable Activity After Discharge Activity Instructions for Disc: Activity as tolerated, Progressive ambulation Bathing Instructions: Shower-keep dressing dry, No Tub Bath until see Lifting Instructions after Dis: No heavy lifting, No pulling or pushing, Do not lift >10 pounds Exercise Instruction after Dis: Exercise per therapy, Progress as tolerated Driving Instructions after Dis: Do not drive Weight Bearing Status after Di: Full weight bearing Diet after Discharge Diet after Discharge: Regular Diet Texture: Regular Wound Incision Care Wound/Incision Care: Ice to area for comfort, Keep wound elevated, Do not change dressing (call if dressing saturated, otherwise when suction stops, cut tail and tape over to maintain seal) Contacting the DRJohnathan after DC Call your doctor for: Concerns you may have Follow-Up Follow up with: Dr. Eugene 2 weeks postop Treatment/Equipment after DC Adaptive Equipment Issued: ROMÁN Gonzalez MD Jun 08, 2020 14:11
--- NOTE | 2020-06-08 14:14 | NUR ---
spoke with Dr. Eugene regarding blood thinner. she refuses to be on Coumadin; she wants eliquis. "My insurance does not pay for the blood draws. Dr. Eugene sent a script for eliquis 2.5 bid to her pharmacy. she is going home with OP therapy
--- NOTE | 2020-06-08 15:30 | NUR ---
Owen wrap removed from Right lower extremity. COLT dressing Dry and Intact. Some bruising noted around dressing. No blisters.
[2020-06-08] MEDS ORDERED: BISACODYL 10 MG SUPP.RECT. PR PRN (16:00)
[2020-06-08] MEDS ORDERED: APIXABAN 2.5 MG TABLET. PO ONE (17:15)
[2020-06-08 17:45] VITALS: BP 132/79
--- NOTE | 2020-06-08 18:00 | NUR ---
reviewed discharge instructions with Conni. cleary script at pharmacy. unsure if she will be able to get tonight. order for 1x eliquis. she wanted crutches --dme order. wanted Yobany Tobin script; explained would have to get order from physician that ordered medication. reviewed restrictions to activities, bathing, blood thinner. friend at bedside. verbalized understanding of these instructions. dismissed to home with belongings after dinner.
--- NOTE | 2020-06-10 22:08 | DS ---
DATE OF DISCHARGE: 06/08/2020 PRINCIPAL DIAGNOSIS: Degenerative joint disease of right knee. PROCEDURE: Right total knee arthroplasty. DISPOSITION: Home with self-care. ACTIVITY: Weightbearing as tolerated, standard total knee protocol. Keep wound elevated, ice for comfort when not ambulatory, call if COLT dressing is saturated. Otherwise when suction stops, cut tail and tape over to maintain seal. DISCHARGE INSTRUCTIONS: Follow up with Dr. Eugene in 2 weeks postoperatively. Crutches were issued on discharge. BRIEF DESCRIPTION OF HOSPITAL COURSE: The patient underwent uncomplicated total knee arthroplasty, progressed well with physical therapy for ambulation and transfers. Pain was well controlled on oral pain medications including oxycodone 5 mg, which was issued her on discharge. She is also taking Eliquis mg p.o. b.i.d. for DVT prophylaxis for 30 days. Maintain preoperative medications including cyclobenzaprine. She was stable medically throughout her stay and was discharged home in stable condition. ROMÁN EUGENE MD DR: SPENCER/negra JOB#: [id number] / [id number]
--- NOTE | 2020-06-13 14:07 | PATHOLOGY ---
[facility] Accession Number: [id number] . 01 Material submitted: . knee - RIGHT KNEE CARTILAGE AND TISSUE. Modifiers: right . 01 Clinical history: . RIGHT KNEE ARTHROPLASTY . 02 Diagnosis: Segments of bone and soft tissue, right total knee arthroplasty: - Advanced degenerative arthritis. - Mild nonspecific chronic synovitis. (JPM:vivek; 06/13/2020) QMS 06/13/2020 1154 Local . 02 Electronically signed: . Nathan Garcia MD, Pathologist NPI- [id number] . 01 Gross description: . The specimen is received in formalin, labeled with the patient's name and "R knee cartilage and tissue" and consists of multiple segments of bone including the tibial plateau with attached yellow soft tissue measuring 12.5 x 12.5 x 2.1 cm. The meniscus is absent. The articular surfaces are roughened with focal eburnation and peripheral osteophytes. Manager Radio sections are submitted in A1 following decalcification. (SDY; 06/09/2020) SYU/SYU 06/09/2020 1633 Local . 02 Pathologist provided ICD-10: M17.11, M65.861 . 02 CPT . 787490, [id number] Specimen Comment: A courtesy copy of this report has been sent to [phone] Specimen Comment: Report sent to Performed at: 01 [facility] [address] [facility] [address], [place] [id number] MD Ernie Whiteside MD Phone: [phone] Performed at: 02 [facility] [address] [place], [place] [id number] MD Nathan Garcia MD Phone: [phone]
== END 2020-06-08 18:00 | disposition home or self-care (01) ==
LOC: SURG 06:08 → INTOOBSV 07:53 → 4 SOUTHEST 07:53
PROVIDERS: ADMIT Orthopaedic Surgery; ATTEND Orthopaedic Surgery
DX: M17.11 Unilateral primary osteoarthritis, right knee (principal); E03.9 Hypothyroidism, unspecified; Z90.710 Acquired absence of both cervix and uterus; Z96.653 Presence of artificial knee joint, bilateral; Z96.643 Presence of artificial hip joint, bilateral; Z98.890 Other specified postprocedural states; Z79.899 Other long term (current) drug therapy
CPT/HCPCS: 27447; 36415; 73560; 85014; 85018; 85610; 85730; 86850; 86900; 86901; 88305; 88311; 96365; 96366; 97110; 97116; 97150; 97162; 97166; 97530; 97535; A4213; A4930; A6223; A6253; A6258; A6402; A6450; A6550; C1713; C1755; C1776; G0378; G0379; J0171; J0690; J1040; J1100; J1170; J1885; J2270; J2704; J2795; J3010; J3370; J3490; J7030; J2405